=== PATIENT | male | born 1985 | race Asian ===

== ENCOUNTER 2017-11-01 11:31 | Emergency (ER) | payer MEDICAID ==
[~2017-11-01] VITALS: Ht 170.2 cm; Wt 75.6 kg
[2017-11-01 11:35] VITALS: BP 142/97
[2017-11-01] MEDS ORDERED: PLEASE ENTER ALLERGIES MC SCH (12:30)
== END 2017-11-01 13:28 | disposition home or self-care (01) ==
LOC: ED 13:22
DX: R21 Rash and other nonspecific skin eruption (principal)
CPT/HCPCS: 99283; J7512

== ENCOUNTER 2017-11-03 13:45 | Emergency (ER) | payer MEDICAID ==
[~2017-11-03] VITALS: Ht 175.3 cm; Wt 75.9 kg
[2017-11-03] MEDS ORDERED: hydrOXyzine 50MG TABLET ONE (15:05)
[2017-11-03] MEDS ORDERED: TRIAMCINOLONE ACETONIDE 40 MG/ML, 1ML IM STA (16:00)
[2017-11-03] MEDS ORDERED: FAMOTIDINE 20 MG TABLET PO ONE (16:00)
[2017-11-03] MEDS ORDERED: FAMOTIDINE 20 MG TABLET ONE (16:29)
[2017-11-03 17:04] VITALS: BP 137/78
== END 2017-11-03 17:06 | disposition home or self-care (01) ==
LOC: ED 15:20
DX: R21 Rash and other nonspecific skin eruption (principal)
CPT/HCPCS: 96372; 99283; J3301; Q0177